=== PATIENT | male | born 1985 | race Caucasian/White ===

== ENCOUNTER 2022-11-29 02:02 | Emergency (ER) | payer SELFPAY ==
[2022-11-29 02:09] VITALS: BP 161/103; PULSE 83; RESP 18; TEMP 37.1; O2SAT 99; BMI 36.2
--- NOTE | 2022-11-29 02:14 | W.ED.MALEGU ---
HPI - Male Genitourinary General: Chief complaint: General Medical Stated complaint: Pain in rectum Time Seen by Provider: 11/29/22 02:06 History of Present Illness: 37-year-old male patient comes in with rectal pain. Patient has a history of hemorrhoids and has had increased pain for the last 2 days in his rectum. Patient reports a history of blood in the stool but has not had any recently. Patient denies any problems with constipation. Patient reports increased pain with defecation. Review of Systems Const: Denies: fever(s) GI: Reports: rectal pain Physical Exam Const: COMMON NORMALS: alert HENMT: COMMON NORMALS: normocephalic HEAD & SCALP: normocephalic Neck/C-Spine: COMMON NORMALS: full ROM Resp: COMMON NORMALS: normal respiratory effort Cardio: COMMON NORMALS: regular rate RATE: regular rate GI: RECTAL EXAM: Yes visual inspection normal, Yes normal sphincter tone and Yes hemorrhoids (No external hemorrhoids noted) Extremity: COMMON NORMALS: normal to inspection Neuro: SENSORIUM/ORIENTATION: Yes alert Skin: COMMON NORMALS: turgor normal GENERAL SKIN EXAM: turgor normal Course Vital Signs: Vital signs: Vital Signs Temperature 98.7 F 11/29/22 02:09 Pulse Rate 83 11/29/22 02:09 Respiratory Rate 18 11/29/22 02:09 Blood Pressure 161/103 11/29/22 02:09 Pulse Oximetry 99 11/29/22 02:09 MDM - Male Medical Decision Making Patient comes in today for complaints of rectal discomfort with a history of blood in stool and hemorrhoids. On exam patient has soft abdomen. Normal bowel sounds. Normal vital signs. Rectal exam was unremarkable. Patient did have extreme discomfort with exam. No external hemorrhoids were noted. Differential diagnosis includes internal hemorrhoids, anal rectal abscess, colon polyps, carcinoma, anal fissure. At this time we will treat for internal hemorrhoids with hydrocortisone and pramoxine suppositories twice a day for the next 2 weeks. Patient was put on stool softener. Patient was given a short number of hydrocodone 5-325 mg tablets for his severe pain. Case management requested to have patient follow-up with surgeon for further evaluation with colonoscopy due to blood in stools. Discharge Plan Discharge Patient Disposition: Home Clinical Impression: Anal or rectal pain, History of hemorrhoids, Blood in stool Condition: Stable Prescriptions: New hydrocortisone-pramoxine 25-18 mg suppository 1 supp MO BID 14 Days Qty: 24 0RF hydrocodone-acetaminophen 5-325 mg tablet 1 tab PO BID PRN (Reason: pain (scale score 7-10)) Qty: 10 0RF docusate sodium 100 mg capsule 100 mg PO BID Qty: 30 0RF Discharge Orders: Discharge ED (Routine); Ordered 11/29/22 Ordered By: Stone Schmitt Discharge Diet: Usual diet Discharge Activity: Increase activity as tolerated Patient Instructions: Melena (ED) Activity Restrictions/Additional Instructions: Use rectal suppository to help control pain. Take that 100 mg capsules for stool softening twice a day to prevent constipation. Use hydrocodone as needed for severe pain. Follow-up with primary care for further instructions. Return to ED for new concerns. Case management will contact you regarding follow-up appointment with surgeon for further evaluation and treatment. Coding Level of Care Code ED [employer]to[employer] Manager for Shlomo Boyer
[2022-11-29 02:26] VITALS: RESP 18; O2SAT 100
--- NOTE | 2022-11-29 02:38 | PC.NURSE ---
Pt sent home with [place] 7.5/325 and Anucort-HC suppository per SORT SUPERVISOR Schmitt order.
[2022-11-29 02:39] VITALS: PULSE 85; RESP 18; O2SAT 100
--- NOTE | 2022-12-01 10:01 | DCPLANNER ---
Addendum entered by Catrachita Tamayo 12/11/22 09:32: Patient did not attend this appointment Addendum entered by Catrachita Tamayo 12/03/22 12:25: Patient has a follow up appointment scheduled for Friday, December 09, 2022 at 11:[address] Cisneros at general surgery Original Note: manager business banking had message to schedule a follow up appointment for patient with general surgery. manager business banking sent patients information to the front office staff at general surgery. Patients information will be printed and reviewed. Clinic will call patient with appointment information.
--- NOTE | 2022-12-02 13:33 | DCPLANNER ---
technical manager chemical plant called patient due to no primary care physician - no answer at this time.
== END 2022-11-29 02:35 | disposition home or self-care (01) ==
PROVIDERS: Emergency Provider Nurse Practitioner Family
DX: K62.89 Other specified diseases of anus and rectum (principal); K92.1 Melena
CPT/HCPCS: 99284